=== PATIENT | female | born 1975 | race African-American/Black ===

== ENCOUNTER 2021-07-15 16:40 | Emergency (ER) | payer MEDICARE, MEDICAID ==
[~2021-07-15] VITALS: Ht 157.5 cm; Wt 75.0 kg
[2021-07-15] MEDS ORDERED: FLUORESCEIN SODIUM 1 MG STRIP OU ONE (17:45)
[2021-07-15] MEDS ORDERED: PROPARACAINE HCL 0.5% 15 ML OPHTHALMIC SOLUTION OU ONE (17:45)
[2021-07-15] MEDS ORDERED: IBUPROFEN 800 MG TABLET PO ONE (18:45)
[2021-07-15 18:50] VITALS: BP 141/78
== END 2021-07-15 18:53 | disposition home or self-care (01) ==
LOC: EMS 16:48
DX: H16.003 Unspecified corneal ulcer, bilateral (principal); H10.89 Other conjunctivitis; I10 Essential (primary) hypertension
CPT/HCPCS: 99283